=== PATIENT | male | born 1950 | race Caucasian/White ===

== ENCOUNTER 2021-07-29 17:06 | Emergency (ER) | payer MEDICARE, SELFPAY ==
[2021-07-29] VITALS (24 sets, daily range): BP systolic 96–140; BP diastolic 68–79; PULSE 91–137; RESP 10–26; TEMP 37.4–38.6; O2SAT 94–99
--- NOTE | ~2021-07-29 | XR_ITS ---
EXAMINATION: XR chest 1V portable EXAM DATE: 07/29/2021 18:51 INDICATION: Weakness, fever. TECHNIQUE: Portable AP frontal chest x-ray was obtained. Comparison is made to prior examination from 06/02/2018. FINDINGS: The lungs are clear. There are no pleural effusions. Cardiomediastinal silhouette is normal. There is no pneumothorax suspected. The bones and soft tissues are unremarkable. IMPRESSION: No acute cardiopulmonary findings. Reviewed, dictated and finalized at location A. AL OPERATOR TECHNICAL
--- NOTE | 2021-07-29 17:22 | ECG_ITS ---
Measurements Intervals [place] Rate: 105 P: 53 [place]: 151 QRS: -30 QRSD: 106 T: 31 QT: 324 QTc: 430 Interpretive Statements SINUS TACHYCARDIA POSSIBLE LEFT ATRIAL ENLARGEMENT DELAYED PRECORDIAL R/S TRANSITION BASELINE ARTIFACT- I, II, V1, V4-V6 BORDERLINE ECG Electronically Signed On 07-30-2021 7:49:58 [employer] by Jeremiah Giraldo D.O.
[2021-07-29 17:45] LABS: Basophils Percent Auto 0.6 % (0.2-1.2); Eosinophils Absolute Auto 0.1 K/mm3 (0-0.3); Eosinophils Percent Auto 1.8 % (0-4.4); Hematocrit 38.4 % (42.0-52.0); Hemoglobin 13.5 g/dL (14.0-18.0); Immature Granulocyte Absolute 0.02 K/mm3 (0.00-0.031); Immature Granulocyte Percent A 0.3 % (0-0.5); Lymphocytes Absolute Auto 0.59 K/mm3 (0.9-3.2); Lymphocytes Percent Auto 8.2 % (18.3-44.2); Mean Corpuscular HGB Conc 35.2 g/dl (32-36); Mean Corpuscular Hemoglobin 34.2 pg (26-34); Mean Corpuscular Volume 97.2 fl (80-100); Mean Platelet Volume 8.8 fl (7.4-10.4); Monocytes Absolute Auto 0.9 K/mm3 (0.1-0.6); Monocytes Percent Auto 13.1 % (2.6-8.5); Neutrophils Absolute Auto 5.5 K/mm3 (1.3-6.7); Platelet Count Result 209 k/mm3 (150-375); Red Blood Count 3.95 M/mm3 (4.6-6.20); White Blood Count 7.2 K/mm3 (4.5-10.0)
[2021-07-29 17:54] LABS: INR 1.1; Partial Thromboplastin Time 28.4 SECONDS (22.3-36.8)
[2021-07-29 17:55] LABS: Lactic Acid Reflex 0.7 mmol/L (0.7-2.1)
[2021-07-29 17:59] LABS: Alanine Aminotransferase 63 U/L (4-50); Albumin Level 4.1 g/dL (3.5-5.1); Alkaline Phosphatase 72 U/L (38-126); Anion Gap 9 mmol/L (8-16); Aspartate Amino Transferase 61 U/L (17-59); Bilirubin,Total 0.9 mg/dL (0.2-1.3); Blood Urea Nitrogen 23 mg/dL (9-20); CRP 4.5 mg/dL (<1.0); Calcium 8.5 mg/dL (8.4-10.2); Carbon Dioxide 24 mmol/L (22-30); Chloride 102 mmol/L (98-107); Estimated CRCL calculation 70 ml/min; Estimated Glomerular Filt Rate > 60; Glucose 155 mg/dL (65-110); Lipase 147 U/L (23-300); Potassium 3.8 mmol/L (3.4-5.0); Sodium 135 mmol/L (137-145)
[2021-07-29] MEDS: SODIUM CHLORIDE 0.9% IV 1,000 ML 999 ML IV CONT ×2 (18:16→21:01)
[2021-07-29] MEDS: ACETAMINOPHEN 500 MG TABLET 1000 MG PO (18:17)
[2021-07-29 18:28] LABS: Add Urine Microscopic? YES; Appearance Urine Clear (Clear); Bilirubin Urine Negative (Negative); Blood Urine Negative (Negative); Color Urine Yellow (Yellow); Glucose Urine UA Negative (Negative); Ketones Urine Trace mg/dL (Negative); Leukocyte Esterase Ur Negative LEU/UL (Negative); Mucus Urine Moderate /lpf; Nitrate Urine Negative (Negative); Protein Urine 1+ mg/dL (Negative); Specific Grav Ur 1.025 (1.001-1.035); Urobilinogen Urine Negative mg/dL (<2.0); WBC Urine 0-3 /hpf
--- NOTE | 2021-07-29 21:48 | ED.FEVER ---
HPI - Fever General Chief Complaint: Fever Stated Complaint: fix me x3 days of fever Time Seen by Provider: 07/29/21 17:44 History of Present Illness HPI Narrative: Patient is a 71-year-old male who presents ER with febrile illness. Reports he had 4 days of fevers and chills, he then had gradual improvement over the course of 3 days while at home. He then started suffering once again 2 days ago. He reports he is taken to home by next now test kits which were negative. He has been vaccinated against Covid. He has no runny nose or sore throat or productive cough. No chest pain/chest pressure. He has no abdominal symptoms no urinary symptoms. He denies any back pain or diffuse body aches. He has been vaccinated for influenza as well. Patient has been trying to drink water but feels dehydrated. Related Data Home Medications Medication Instructions Recorded Confirmed rosuvastatin mg 07/29/21 07/29/21 Allergies Allergy/AdvReac Type Severity Reaction Status Date / Time zolmitriptan Allergy Unknown Unknown Verified 07/29/21 17:45 ZOMAX Allergy Unknown Unknown Uncoded 07/29/21 17:45 Review of Systems Review of Systems: All systems reviewed & are unremarkable except as noted in HPI and below Constitutional: Constitutional: Reports chills, Reports fatigue and Reports fever(s) ENT: Denies nasal congestion and Denies sore throat Cardiovascular: Cardiovascular: Denies chest pain, Denies rapid heart rate and Denies radiating jaw, neck or arm pain Respiratory: Respiratory: Denies cough, Denies dyspnea and Denies wheezing Gastrointestinal: Gastrointestinal: Denies abdominal pain, Denies diarrhea, Denies nausea and Denies vomiting Genitourinary: Genitourinary: Denies dysuria and Denies urinary frequency Musculoskeletal: Musculoskeletal: Denies back pain and Denies muscle cramps Integumentary/Breasts: Skin/Breast: Denies erythema and Denies rash PMFSH Past Medical History Medical History (Updated 07/29/21 @ 21:50 by Ernesto Goldsmith MD) Bilateral thumb pain Screen for colon cancer Screening for prostate cancer Family History Family History Grandparent Family history of coronary artery disease Other Cerebrovascular accident Diabetes mellitus Family history of lung cancer Social History Social History Smoking status: Never smoker Second hand tobacco smoke exposure: No Alcohol intake: current Drinks per week: 7 Substance use: never Exam Narrative: GENERAL: Well-appearing, well-nourished, and in no acute distress. HEAD: Normocephalic, atraumatic. EYES: PERRL and EOMI. ENT: Mucous membranes moist. Small scabbed area within the hair of the left upper lip without induration or purulent drainage. CHEST: Clear to auscultation. No respiratory distress. HEART: Regular rate and rhythm. Normal peripheral pulses. ABDOMEN: Soft, nontender, nondistended. EXTREMITIES: Normal range of motion. No edema. SKIN: Warm, dry, no rash. NEURO: Alert and oriented x3. PSYCH: Normal mood and affect. 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 Patient has no complaints outside of fevers and chills. He has no reproducible tenderness on abdominal exam. Chest x-ray free of infiltrate and he has normal lung sounds. Recommend follow-up with PCP. Recommend alternating Tylenol and ibuprofen for fever. Vital Signs Vital signs: Vital Signs Pulse Rate 106 H 07/29/21 17:15 Respiratory Rate 16 07/29/21 17:15 Blood Pressure 110/78 07/29/21 17:15 Pulse Oximetry 97 07/29/21 17:15 Temperature 99.3 F 07/29/21 19:39 Pulse Rate 93 07/29/21 21:30 Respiratory Rate 16 07/29/21 21:30 Blood Pressure 140/73 07/29/21 21:30 Pulse Oximetry 99 07/29/21 21:30 MDM - Fever Lab Data Result diagrams: 07/29/21 17:34 07/29/21 17:34 Labs:
[2021-07-31 14:20] LABS: SARS-CoV-2 RNA PCR Negative
== END 2021-07-29 21:57 | disposition home or self-care (01) ==
PROVIDERS: Emergency Provider Emergency Medicine; PCP Family Medicine
DX: B34.9 Viral infection, unspecified (principal); Z20.822 Contact with and (suspected) exposure to COVID-19
CPT/HCPCS: 36415; 71045; 80053; 81001; 83605; 83690; 85025; 85610; 85730; 86140; 87040; 87804; 93005; 99283; A9270; C9803; J7030; U0003; U0005

== ENCOUNTER → 2021-09-28 11:13 | Outpatient (CLI) | payer MEDICARE, SELFPAY ==
--- NOTE | ~2021-09-28 | XR_ITS ---
XR hand RT 2V DATE: 09/28/2021 11:39 INDICATION: Pain in the right fingers TECHNIQUE: AP and lateral views COMPARISON: None FINDINGS: No fracture, dislocation, periosteal reaction or bone destruction. There is polyarticular osteoarthritis, including particularly the first carpometacarpal, first and th ird metacarpophalangeal and multiple interphalangeal joints, especially at the first digit. IMPRESSION: Polyarticular osteoarthritis Reviewed, dictated and finalized at location A. GHT LEADER
--- NOTE | ~2021-09-28 | XR_ITS ---
XR hand LT 2V DATE: 09/28/2021 11:39 INDICATION: Pain in left fingers TECHNIQUE: AP and lateral views COMPARISON: None FINDINGS: No fracture, dislocation, periosteal reaction or bone destruction. There is periarticular osteophyte is, including particularly the triscaphe, first carpometacarpal and multiple interphalangeal joints including interphalangeal joint of the thumb and distal interphalang eal joints of the digits. No erosive change or chondrocalcinosis. IMPRESSION: Polyarticular osteoarthritis Reviewed, dictated and finalized at location A. JOINER LOCKSTITCH
== END ==
PROVIDERS: PCP Family Medicine; Visit Provider Nurse Practitioner Family
DX: M79.644 Pain in right finger(s) (principal); M79.645 Pain in left finger(s); M19.042 Primary osteoarthritis, left hand; M19.041 Primary osteoarthritis, right hand
CPT/HCPCS: 73120

== ENCOUNTER → 2023-07-04 14:38 | Outpatient (CLI) | payer MEDICARE, SELFPAY ==
--- NOTE | ~2023-07-04 | CT_ITS ---
EXAMINATION: CT soft tissue neck w con DATE: 07/04/2023 15:27 INDICATION: Right tongue and mouth pain. Recurrent oral aphthae. TECHNIQUE: Computed tomography (CT) of the neck was performed with 75 mL Omnipaque-350 intravenous co ntrast. Automated exposure control and iterative reconstruction technique were employed. The dose-oumar gth product was 379.50 mGy-cm. COMPARISON: None FINDINGS: There are likely changes of right ocular lens replacement surgery. There are calcifications of the palatine tonsils. There are no pathologically enlarged lymph nodes. There is plaque in the pr oximal internal arteries with 0% stenosis relative to normal distal artery lumen diameters. There is mild mucosal thickening in the ethmoid sinuses. The mastoid air cells are normal. There is severe cer vical spondylosis. IMPRESSION: 1. No etiology for the patient's symptoms. Reviewed, dictated and finalized at location A. CUTTER LATHE OPERATOR
[2023-07-04 15:12] LABS: Estimated Glomerular Filt Rate > 60
== END ==
PROVIDERS: PCP Family Medicine; Visit Provider Otolaryngology
DX: K12.0 Recurrent oral aphthae (principal)
CPT/HCPCS: 70491; Q9967

== ENCOUNTER → 2023-07-29 11:11 | Outpatient (CLI) | payer MEDICARE, SELFPAY ==
--- NOTE | ~2023-07-29 | US_ITS ---
EXAMINATION: US soft tissue groin RT DATE: 07/29/2023 11:38 INDICATION: Right groin mass. TECHNIQUE: Multiple grayscale and Doppler ultrasound images of the right groin were obtained. COMPARISON: None FINDINGS: There is a hernia in right inguinal region. No lymphadenopathy. IMPRESSION: 1. Right inguinal hernia. Reviewed, dictated and finalized at location A. PACKER/PACKAGER IMPRESSION: 1. Right inguinal hernia.
== END ==
DX: Z85.820 Personal history of malignant melanoma of skin (principal); R22.9 Localized swelling, mass and lump, unspecified; K40.90 Unilateral inguinal hernia, without obstruction or gangrene, not specified as recurrent
CPT/HCPCS: 76882

== ENCOUNTER 2023-12-11 09:15 | Outpatient (CLI) | payer MEDICARE, SELFPAY ==
[2023-12-11 20:12] LABS: Alanine Aminotransferase 28 U/L (6-50); Albumin Level 4.7 g/dL (3.5-5.1); Alkaline Phosphatase 42 U/L (38-126); Anion Gap 7 mmol/L (4-12); Aspartate Amino Transferase 73 U/L (17-59); Bilirubin,Total 0.9 mg/dL (0.2-1.3); Blood Urea Nitrogen 19 mg/dL (9-20); Calcium 9.5 mg/dL (8.4-10.2); Carbon Dioxide 28 mmol/L (22-30); Chloride 105 mmol/L (98-107); Cholesterol 136 mg/dL (0-200); Estimated Glomerular Filt Rate > 60; Glucose 111 mg/dL (65-110); HDL Direct 56 mg/dL; Potassium 4.3 mmol/L (3.4-5.0); Sodium 140 mmol/L (137-145); Triglycerides 77 mg/dL (<150)
[2023-12-11 20:24] LABS: LDL Cholesterol Direct 65 mg/dL
[2023-12-11 20:38] LABS: Prostate Specific Antigen 0.9 ng/mL (< OR = 4.0)
[2023-12-11 20:39] LABS: Hematocrit 45.5 % (42.0-52.0); Hemoglobin 14.6 g/dL (14.0-18.0); Mean Corpuscular HGB Conc 32.1 g/dl (32-36); Mean Corpuscular Hemoglobin 34.4 pg (26-34); Mean Corpuscular Volume 107.1 fl (80-100); Mean Platelet Volume 9.9 fl (7.4-10.4); Platelet Count Result 169 k/mm3 (150-375); Red Blood Count 4.25 M/mm3 (4.6-6.20); Red Cell Distribution Width 12.3 % (11.5-14.5); White Blood Count 3.5 K/mm3 (4.5-10.0)
== END 2023-12-11 09:16 | disposition home or self-care (01) ==
PROVIDERS: Visit Provider Nurse Practitioner Family
DX: Z12.5 Encounter for screening for malignant neoplasm of prostate (principal); R74.8 Abnormal levels of other serum enzymes; E78.2 Mixed hyperlipidemia; H33.21 Serous retinal detachment, right eye; R50.9 Fever, unspecified
CPT/HCPCS: 36415; 80053; 80061; 84153; 84443; 85027; G0103

== ENCOUNTER 2024-01-16 09:20 | Outpatient (CLI) | payer MEDICARE, SELFPAY ==
[2024-01-16 20:25] LABS: Alanine Aminotransferase 37 U/L (6-50); Albumin Level 4.6 g/dL (3.5-5.1); Alkaline Phosphatase 46 U/L (38-126); Aspartate Amino Transferase 68 U/L (17-59); Bilirubin,Total 0.9 mg/dL (0.2-1.3)
[2024-01-16 20:48] LABS: Iron 136 ug/dL (49-181)
[2024-01-16 20:59] LABS: Percent Iron Saturation 41 % (20-50)
== END 2024-01-16 09:21 | disposition home or self-care (01) ==
PROVIDERS: Visit Provider Nurse Practitioner Family
DX: D64.9 Anemia, unspecified (principal); R74.8 Abnormal levels of other serum enzymes
CPT/HCPCS: 36415; 80076; 83540; 83550